=== PATIENT | male | born 1980 | race Caucasian/White ===

== ENCOUNTER 2019-02-02 14:49 | Inpatient (IN) | payer OTHER ==
[2019-02-02 17:01] VITALS: BMI 28.7
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
[2019-02-02] MEDS ORDERED: MAGNESIUM HYDROX 2400MG/30ML ORAL SUSPENSION 30 ML CUP PO PRN (18:18)
[2019-02-02] MEDS ORDERED: NICOTINE POLACRILEX 2 MG GUM BUC PRN (18:18)
[2019-02-02] MEDS ORDERED: cloNIDine HCL 0.1 MG TABLET PO PRN (18:18)
[2019-02-02] MEDS ORDERED: diazePAM 5 MG TABLET PO PRN (18:18)
[2019-02-02] MEDS ORDERED: ACETAMINOPHEN 325 MG TABLET (FP) PO PRN ×2 (18:18)
[2019-02-02] MEDS ORDERED: MENTHOL/PHENOL 1 EACH UD MM PRN (18:18)
[2019-02-02] MEDS ORDERED: MAGNESIUM CITRATE 300 ML BOTTLE PO PRN (18:18)
[2019-02-02] MEDS ORDERED: MAG HYDROX/AL HYDROX/SIMETH 30 ML UNIT-DOSE CUP PO PRN (18:18)
[2019-02-02] MEDS ORDERED: IBUPROFEN 400 MG TABLET (FP) PO PRN (18:18)
[2019-02-02] MEDS ORDERED: METHOCARBAMOL 500 MG TABLET PO PRN (18:18)
[2019-02-02] MEDS ORDERED: BISMUTH SUBSALICYLATE 524 MG/30 ML UD PO PRN (18:18)
[2019-02-02] MEDS ORDERED: METHADONE HCL 10 MG TABLET PO ONE (19:30)
[2019-02-02] MEDS ORDERED: diazePAM 5 MG TABLET PO ONE (19:30)
[2019-02-02] MEDS: THIAMINE HCL 100 MG TABLET (FP) PO SCH (22:06)
[2019-02-02] MEDS: MELATONIN 5 MG TABLETS PO PRN (22:06)
[2019-02-02] MEDS: diazePAM 5 MG TABLET PO SCH (22:07)
[2019-02-02] MEDS ORDERED: METHADONE HCL 10 MG TABLET (FOR DETOX USE ONLY) PO ONE (23:00)
[2019-02-03] MEDS: diazePAM 5 MG TABLET PO SCH ×3 (06:30→22:14)
[2019-02-03] MEDS ORDERED: METHADONE HCL 10 MG TABLET (FOR DETOX USE ONLY) PO ONE (10:00)
[2019-02-03] MEDS: NICOTINE 14 MG/24 HOURS TOPICAL PATCH TD SCH (10:10)
[2019-02-03] MEDS: PRENATAL VITAMINS W/ FOLIC ACID TABLET (FP) PO SCH (10:10)
--- NOTE | 2019-02-03 10:51 | PN ---
[facility] CIWA - CIWA Score Nausea/Vomitin-No Nausea/No Vomiting Muscle Tremors: 4-Moderate,w/Arms Extend Anxiety: 1-Mildly Anxious Agitation: 4-Moderately Restless Paroxysmal Sweats: 4-Forehead w/Sweat Beads Orientation: 0-Oriented Tacttile Disturbances: 0-None Auditory Disturbances: 0-None Visual Disturbances: 0-None Headache: 1-Very Mild CIWA-Ar Total Score: 14 BHS COWS - Scale Resting Pulse: 1= TN 81-100 Sweatin= Beads of Sweat on Face Restless Observation: 1= Difficult to Sit Still Pupil Size: 1= Pupils >than Normal Bone or Joint Aches: 1= Mild Discomfort Runny Nose/ Eye Tearin= Nasal Congestion GI Upset > 30mins: 0= None Tremor Observation of Outstretched Hands: 2= Slight Tremor Visible Yawning Observation: 1= 1-2x During Session Anxiety or Irritability: 1=Feels Anxious/Irritable Goose Flesh Skin: 0=Smooth Skin COWS Score: 12 S Progress Note (SOAP) Subjective: nasal congestion restlessness sweats back pain Objective: Vital Signs 02/03/19 02/03/19 02/03/19 03:30 07:32 09:39 Temperature 97 F L 97.7 F Pulse Rate 63 84 Respiratory 18 18 18 Rate Blood Pressure 121/74 134/73 Labs pending Assessment: 02/03/19 10:54 No respiratory distress EENT WNL Full ROM, ambulating in the unit withdrawal sx Plan: continue detox increase fluids
[2019-02-03 11:29] LABS: HEMATOCRIT 43.1 % (35.4-49); HEMOGLOBIN 14.6 GM/dL (11.7-16.9); MEAN CELL VOLUME 88.4 fl (80-96); MEAN PLT VOLUME 9.1 fl (7.5-11.1); PLATELET COUNT 240 K/MM3 (134-434); RBC 4.87 M/mm3 (4.00-5.60); RDW 14.5 % (11.9-15.9); WHITE BLOOD COUNT 9.2 K/mm3 (4.0-10.0)
[2019-02-03 11:50] LABS: ALBUMIN 3.8 g/dl (3.4-5.0); ALK PHOS 64 U/L (45-117); ANION GAP 7 MMOL/L (8-16); BILIRUBIN,TOTAL 0.5 mg/dL (0.2-1); BLOOD UREA NITROGEN 11 mg/dL (7-18); CALCIUM 8.9 mg/dL (8.5-10.1); CHLORIDE 104 mmol/L (98-107); CO2 27 mmol/L (21-32); GLUCOSE,RANDOM 132 mg/dL (74-106); POTASSIUM 4.4 mmol/L (3.5-5.1); SGOT/AST 9 U/L (15-37); SGPT/ALT 16 U/L (13-61); SODIUM 138 mmol/L (136-145); TOT PROT 7.2 g/dl (6.4-8.2)
--- NOTE | 2019-02-03 12:03 | EKG ---
Test Reason : Blood Pressure : / mmHG Vent. Rate : 056 BPM Atrial Rate : 056 BPM P-R Int : 148 ms QRS Dur : 092 ms QT Int : 398 ms P-R-T Axes : 062 048 051 degrees QTc Int : 384 ms SINUS BRADYCARDIA OTHERWISE NORMAL ECG NO PREVIOUS ECGS AVAILABLE Confirmed by ROBER MARLEY, REY ([id number]) on 02/03/2019 12:02:57 PM Referred By: Confirmed By:REY RICHTER MD
[2019-02-03] MEDS: MELATONIN 5 MG TABLETS PO PRN (22:14)
[2019-02-03] MEDS: THIAMINE HCL 100 MG TABLET (FP) PO SCH (22:14)
[2019-02-04] MEDS ORDERED: METHADONE HCL 10 MG TABLET (FOR DETOX USE ONLY) PO ONE (10:00)
[2019-02-04] MEDS ORDERED: diazePAM 5 MG TABLET PO SCH (10:00)
[2019-02-04] MEDS: PRENATAL VITAMINS W/ FOLIC ACID TABLET (FP) PO SCH (10:09)
[2019-02-04] MEDS: NICOTINE 14 MG/24 HOURS TOPICAL PATCH TD SCH (11:08)
--- NOTE | 2019-02-04 13:07 | PN ---
S CIWA - CIWA Score Nausea/Vomitin Muscle Tremors: 2 Anxiety: 2 Agitation: 2 Paroxysmal Sweats: 1-Minimal Palms Moist Orientation: 0-Oriented Tacttile Disturbances: 1-Very Mild Itch/Numbness Auditory Disturbances: 1-Very Mild Visual Disturbances: 0-None Headache: 2-Mild CIWA-Ar Total Score: 13 BHS COWS - Scale Resting Pulse: 0= VA 80 or Below Sweatin= Chills/Flushing Restless Observation: 1= Difficult to Sit Still Pupil Size: 1= Pupils >than Normal Bone or Joint Aches: 2= Severe Diffuse Aches Runny Nose/ Eye Tearin= Runny Nose/Eyes GI Upset > 30mins: 2= Nausea/Diarrhea Tremor Observation of Outstretched Hands: 2= Slight Tremor Visible Yawning Observation: 1= 1-2x During Session Anxiety or Irritability: 2=Irritable/Anxious Goose Flesh Skin: 0=Smooth Skin COWS Score: 14 S Progress Note (SOAP) Subjective: alert,irritable,anxious,interrupted sleep,tremor,pain in the body and back Objective: 02/04/19 13:06 Vital Signs Temperature 96.4 F L 02/04/19 09:57 Pulse Rate 76 02/04/19 09:57 Respiratory Rate 18 02/04/19 09:57 Blood Pressure 148/86 02/04/19 09:57 O2 Sat by Pulse Oximetry (%) 02/04/19 13:06 Laboratory Last Values WBC 9.2 K/mm3 (4.0-10.0) 02/03/19 07:30 RBC 4.87 M/mm3 (4.00-5.60) 02/03/19 07:30 Hgb 14.6 GM/dL (11.7-16.9) 02/03/19 07:30 Hct 43.1 % (35.4-49) 02/03/19 07:30 MCV 88.4 fl (80-96) 02/03/19 07:30 MCH 30.0 pg (25.7-33.7) 02/03/19 07:30 MCHC 34.0 g/dl (32.0-35.9) 02/03/19 07:30 RDW 14.5 % (11.9-15.9) 02/03/19 07:30 Plt Count 240 K/MM3 (134-434) 02/03/19 07:30 MPV 9.1 fl (7.5-11.1) 02/03/19 07:30 Sodium 138 mmol/L (136-145) 02/03/19 07:30 Potassium 4.4 mmol/L (3.5-5.1) 02/03/19 07:30 Chloride 104 mmol/L (98-107) 02/03/19 07:30 Carbon Dioxide 27 mmol/L (21-32) 02/03/19 07:30 Anion Gap 7 MMOL/L (8-16) L 02/03/19 07:30 BUN 11 mg/dL (7-18) 02/03/19 07:30 Creatinine 1.0 mg/dL (0.55-1.3) 02/03/19 07:30 Creat Clearance w eGFR 84.08 (>60) 02/03/19 07:30 Random Glucose 132 mg/dL (74-106) H 02/03/19 07:30 Calcium 8.9 mg/dL (8.5-10.1) 02/03/19 07:30 Total Bilirubin 0.5 mg/dL (0.2-1) 02/03/19 07:30 AST 9 U/L (15-37) L 02/03/19 07:30 ALT 16 U/L (13-61) 02/03/19 07:30 Alkaline Phosphatase 64 U/L (45-117) 02/03/19 07:30 Total Protein 7.2 g/dl (6.4-8.2) 02/03/19 07:30 Albumin 3.8 g/dl (3.4-5.0) 02/03/19 07:30 RPR Titer Nonreactive (NONREACTIVE) 02/03/19 07:30 Assessment: 02/04/19 13:06 withdrawal symptom Plan: continue detox
[2019-02-04 17:03] VITALS: BP 119/79; PULSE 69; TEMP 96.8
--- NOTE | 2019-02-04 17:44 | PN ---
[facility] Progress Note Note: Vital Signs Temperature 96.8 F L 02/04/19 17:03 Pulse Rate 69 02/04/19 17:03 Respiratory Rate 18 02/04/19 17:03 Blood Pressure 119/79 02/04/19 17:03 O2 Sat by Pulse Oximetry (%) Patient requested to leave AMA, no longer wishes to continue detox. Reports insomnia, declines interventions. No SI / HI. Patient aware of risk of interrupting treatment. If worsening symptoms are present to go the emergency room. Patient will [facility] on Friday02/08/19 for evaluation for Vivitrol treatment. Patient left in stable condition.
--- NOTE | 2019-02-04 17:50 | DS ---
[facility] Detox Discharge Summary Admission Date: 02/02/19 Discharge Date: 02/04/19 - History Present History: Opioid Dependence, Sedative Dependence - Physical Exam Results Vital Signs: Vital Signs Temperature 96.8 F L 02/04/19 17:03 Pulse Rate 69 02/04/19 17:03 Respiratory Rate 18 02/04/19 17:03 Blood Pressure 119/79 02/04/19 17:03 O2 Sat by Pulse Oximetry (%) Pertinent Admission Physical Exam Findings: Patient left AMA. Patient advised on the risk of interrupting treatment. Patient verbalizes understanding. Patient will follow up with appt with Dr. Merchant on 02/08/19. Patient left in stable condition. - Medication Discharge Medications: Ambulatory Orders NK [No Known Home Medication] 02/02/19 - Diagnosis (1) Opioid dependence with withdrawal Current Visit: Yes Status: Acute (2) Sedative, hypnotic, or anxiolytic withdrawal Current Visit: Yes Status: Acute (3) Chronic lower back pain Current Visit: Yes Status: Chronic Qualifiers: Back pain laterality: right Sciatica presence: with sciatica (4) Nicotine dependence Current Visit: Yes Status: Chronic Qualifiers: Nicotine product type: cigarettes Substance use status: uncomplicated Qualified Code(s): F17.210 - Nicotine dependence, cigarettes, uncomplicated - AMA Did Patient Leave Against Medical Advice: Yes
[2019-02-04 19:25] LABS: PH,URINE 7.5 (5.0-8.0); URINE APPEARANCE CLEAR; URINE BILIRUBIN NEGATIVE (<2.0 mg/dL); URINE COLOR YELLOW; URINE GLUCOSE (UA) NEGATIVE (NEGATIVE); URINE KETONE NEGATIVE (NEGATIVE); URINE LEUK ESTERASE NEGATIVE (NEGATIVE); URINE NITRITE NEGATIVE (NEGATIVE); URINE PROTEIN NEGATIVE (NEGATIVE); URINE UROBILINOGEN 0.2 mg/dL (0.2-1.0)
[2019-02-05] MEDS ORDERED: diazePAM 5 MG TABLET PO SCH (06:00)
[2019-02-05] MEDS ORDERED: METHADONE HCL 10 MG TABLET (FOR DETOX USE ONLY) PO ONE (10:00)
[2019-02-06] MEDS ORDERED: METHADONE HCL 5 MG TABLET (FOR DETOX USE ONLY) PO ONE (06:00)
== END 2019-02-04 18:16 | disposition home or self-care (01) | DRG 773 ==
LOC: YASAS 14:49 → Y6N 19:24
PROVIDERS: ADMIT Surgery; ATTEND Surgery
PROC: HZ2ZZZZ Detoxification Services for Substance Abuse Treatment (ICD-10-PCS; principal; 2019-02-02)
DX: F11.23 Opioid dependence with withdrawal (principal); F13.230 Sedative, hypnotic or anxiolytic dependence with withdrawal, uncomplicated; F17.210 Nicotine dependence, cigarettes, uncomplicated; M54.41 Lumbago with sciatica, right side; Z86.69 Personal history of other diseases of the nervous system and sense organs
CPT/HCPCS: 36415; 80053; 81003; 85027; 86593; 93005; 93010; J0735